=== PATIENT | female | born 1960 | race Caucasian/White ===

== ENCOUNTER 2016-12-12 09:39 | Emergency (ER) | payer BC ==
[2016-12-12 10:37] VITALS: BP 115/70
--- NOTE | 2016-12-12 11:56 | UC ---
Throat Pain/Nasal Cruzito HPI - HPI Summary HPI Summary: ONE WEEK OF SORE THROAT AND FEVER DEVELOPED YESTERDAY 100F. NO COUGH. - History of Current Complaint Chief Complaint: UCRespiratory Stated Complaint: SORE THROAT FEVER Time Seen by Provider: 12/12/16 11:15 Hx Obtained From: Patient Onset/Duration: Gradual Onset, Lasting Weeks, Still Present Severity: Mild Cough: None Associated Signs & Symptoms: Positive: Hoarseness, Fever - Epiglottits Risk Factors Epiglottis Risk Factors: Negative - Allergies/Home Medications Allergies/Adverse Reactions: Allergies Allergy/AdvReac Type Severity Reaction Status Date / Time Cefazolin [From Ancef] Allergy Hives Verified 12/12/16 10:30 Fluconazole [From Diflucan] Allergy Airway Verified 12/12/16 10:30 Obstruction Home Medications: Home Medications Allergy Medication PRN 12/12/16 [History] PMH/Surg Hx/FS Hx/Imm Hx Previously Healthy: Yes Cardiovascular History Of: Reports: Cardiac Disorders - MVP - Surgical History Surgical History: Yes Surgery Procedure, Year, and Place: Cholecystectomy Tubal Ligation, 2003, [facility] [place] - Family History Known Family History: Negative: Cardiac Disease, Respiratory Disease - Social History Occupation: Employed Full-time Lives: With Family Alcohol Use: Occasionally Substance Use Type: None Smoking Status (MU): Never Smoked Tobacco - Immunization History Most Recent Influenza Vaccination: June 2014 Review of Systems Constitutional: Fever Skin: Negative ENT: Sore Throat Respiratory: Negative Cardiovascular: Negative Gastrointestinal: Negative Genitourinary: Negative Motor: Negative Neurovascular: Negative Musculoskeletal: Negative Neurological: Negative Psychological: Negative All Other Systems Reviewed And Are Negative: Yes Physical Exam Triage Information Reviewed: Yes Appearance: Well-Appearing, No Pain Distress, Well-Nourished Vital Signs: Initial Vital Signs Temp 99.7 F 12/12/16 10:33 Pulse 89 12/12/16 10:33 Resp 18 12/12/16 10:33 BP 115/70 12/12/16 10:33 Pulse Ox 99 12/12/16 10:33 Vital Signs Reviewed: Yes Eye Exam: Normal Eyes: Positive: Conjunctiva Clear ENT: Positive: Pharynx normal, Pharyngeal erythema, TMs normal Dental Exam: Normal Neck exam: Normal Respiratory Exam: Normal Respiratory: Positive: Chest non-tender, Lungs clear, Normal breath sounds, No respiratory distress Cardiovascular Exam: Normal Cardiovascular: Positive: RRR, No Murmur Abdominal Exam: Normal Musculoskeletal Exam: Normal Neurological Exam: Normal Psychological Exam: Normal Psychological: Positive: Normal Response To Family Skin Exam: Normal Throat Pain/Nasal Course/Dx - Differential Dx/Diagnosis Differential Diagnosis/HQI/PQRI: Sinusitis, Tonsillitis, URI Provider Diagnoses: PHARYNGITIS. VIRAL SYNDROME Discharge - Discharge Plan Condition: Stable Disposition: HOME Patient Education Materials: Pharyngitis (ED), Viral Syndrome (ED) Referrals: Raine Rodriguez MD [Primary Care Provider] -
== END 2016-12-12 11:53 | disposition home or self-care (01) ==
LOC: UCCORT 09:39
DX: J02.9 Acute pharyngitis, unspecified (principal); B34.9 Viral infection, unspecified; I34.1 Nonrheumatic mitral (valve) prolapse; Z90.49 Acquired absence of other specified parts of digestive tract; Z88.1 Allergy status to other antibiotic agents
CPT/HCPCS: 87651; 99211; G0463

== ENCOUNTER 2017-06-10 09:18 | Emergency (ER) | payer BC ==
[2017-06-10 09:47] VITALS: BP 118/71
--- NOTE | 2017-06-10 10:28 | UC ---
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 Put hand in migdalia detergent immediately afterward to "Stop reaction" and took benadryl. no symptoms until this morning when woke to finger being swolllen, ithcy, and warm. took benadryl, symptoms improved. Requesting prednisone in case symptoms arise like they have in past as she is travelling. - History of Current Complaint Chief Complaint: UCSkin Stated Complaint: BEE STING 06/07/17 Time Seen by Provider: 06/10/17 10:15 Hx Obtained From: Patient Hx Last Menstrual Period: n/a Onset/Duration: Gradual Onset, Lasting Days Severity Initially: Mild Severity Currently: None - Allergies/Home Medications Allergies/Adverse Reactions: Allergies Allergy/AdvReac Type Severity Reaction Status Date / Time Cefazolin [From Ancef] Allergy Hives Verified 06/10/17 09:47 Fluconazole [From Diflucan] Allergy Airway Verified 06/10/17 09:47 Obstruction PMH/Surg Hx/FS Hx/Imm Hx Previously Healthy: Yes - Surgical History Surgical History: Yes Surgery Procedure, Year, and Place: Cholecystectomy Tubal Ligation, 2003, [facility] [place] - Family History Known Family History: Negative: Cardiac Disease, Respiratory Disease - Social History Alcohol Use: Occasionally Substance Use Type: None Smoking Status (MU): Never Smoked Tobacco - Immunization History Most Recent Influenza Vaccination: no 2016 Review of Systems Skin: Rash Neurological: Other - itching Is Patient Immunocompromised?: No All Other Systems Reviewed And Are Negative: Yes Physical Exam Triage Information Reviewed: Yes Appearance: Well-Appearing, No Pain Distress, Well-Nourished Vital Signs: Initial Vital Signs Temp 98.4 F 06/10/17 09:42 Pulse 80 06/10/17 09:42 Resp 15 06/10/17 09:42 BP 118/71 06/10/17 09:42 Pulse Ox 98 06/10/17 09:42 Eyes: Positive: Conjunctiva Clear Musculoskeletal: Positive: Strength Intact, ROM Intact, No Edema, Other: - right thumb with minimal erythema, no edema, non-tender to touch, no warmth. full ROM with full senation, strength 5/5, no other areas of redness, warmth on heand, full ROM wrist, fingers. rad, ulnar pulses 2+ Allergic Reaction Course/Dx - Course Course Of Treatment: currently stable and asympomatic. Typically i would not gie out steroids however, patient seems to be a very good historian and since will be away from home i cecy prescribe medrol dose pack in case symptoms occur. she should take bendryl for mild s/s as she is doing now, and will also recommend an H2 maureen to help with reaction - Differential Dx/Diagnosis Differential Diagnosis/HQI/PQRI: Airway Obstruction Provider Diagnoses: allergic reaction to insect sting Discharge - Discharge Plan Condition: Good Disposition: HOME Prescriptions: Methylprednisolone [Medrol Dosepak 4 MG*] 1 kym PO .SEE KYM INSTRUCTION #1 kym Patient Education Materials: General Allergic Reaction (ED) Referrals: Liset Pablo MD [Primary Care Provider] - Additional Instructions: - Zantac/ Ranitidine 150 mg twice a day - Allergy medication during the day, Benadryl at night for next 3 days - Medrol dose pack as directed if symptoms worsen. - FOllow up with primary physician
== END 2017-06-10 10:34 | disposition home or self-care (01) ==
LOC: UCCORT 09:18
DX: T63.441A Toxic effect of venom of bees, accidental (unintentional), initial encounter (principal); L29.9 Pruritus, unspecified; X58.XXXA Exposure to other specified factors, initial encounter; Y92.89 Other specified places as the place of occurrence of the external cause; Z88.8 Allergy status to other drugs, medicaments and biological substances
CPT/HCPCS: 99212; G0463

== ENCOUNTER 2019-01-22 07:26 | Emergency (ER) | payer BC ==
[2019-01-22 07:41] VITALS: BP 116/78
--- NOTE | 2019-01-22 08:34 | UC ---
Throat Pain/Nasal Cruzito HPI - HPI Summary HPI Summary: 59 yo female with sore throat x 3 days, nasal congestion, a lot of PND, low grade temp no cp or sob hx VAIBHAV - History of Current Complaint Chief Complaint: UCGeneralIllness Stated Complaint: SORE THROAT, FEVER Time Seen by Provider: 01/22/19 08:13 Hx Obtained From: Patient Hx Last Menstrual Period: n/a Onset/Duration: Gradual Onset, Lasting Days Severity: Moderate Pain Intensity: 5 Pain Scale Used: 0-10 Numeric Cough: None Associated Signs & Symptoms: Positive: Nasal Discharge Related History: Seasonal Allergies - Epiglottits Risk Factors Epiglottis Risk Factors: Negative - Allergies/Home Medications Allergies/Adverse Reactions: Allergies Allergy/AdvReac Type Severity Reaction Status Date / Time cefazolin Allergy Hives Verified 01/22/19 07:43 fluconazole Allergy Airway Verified 01/22/19 07:43 Obstruction Penicillins Allergy Palpitation Verified 01/22/19 07:43 s Home Medications: Home Medications Multivitamin [Multiple Vitamins] 1 tab PO DAILY 01/22/19 [History Confirmed ] PMH/Surg Hx/FS Hx/Imm Hx Previously Healthy: Yes - Surgical History Surgical History: Yes Surgery Procedure, Year, and Place: Cholecystectomy Tubal Ligation, 2003, [facility] - Family History Known Family History: Negative: Cardiac Disease, Respiratory Disease - Social History Alcohol Use: Occasionally Substance Use Type: None Smoking Status (MU): Never Smoked Tobacco - Immunization History Most Recent Influenza Vaccination: no 2016 Review of Systems All Other Systems Reviewed And Are Negative: Yes Constitutional: Positive: Fever - yong Skin: Positive: Negative Eyes: Positive: Negative ENT: Positive: Sore Throat, Nasal Discharge, Sinus Congestion Respiratory: Positive: Negative Cardiovascular: Positive: Negative Gastrointestinal: Positive: Nausea - day one of illness Genitourinary: Positive: Negative Motor: Positive: Negative Neurovascular: Positive: Negative Musculoskeletal: Positive: Negative Neurological: Positive: Negative Psychological: Positive: Negative Physical Exam Triage Information Reviewed: Yes Appearance: Well-Appearing, No Pain Distress, Well-Nourished Vital Signs: Initial Vital Signs Temp 98 F 01/22/19 07:36 Pulse 98 01/22/19 07:36 Resp 16 01/22/19 07:36 BP 116/78 01/22/19 07:36 Pulse Ox 99 01/22/19 07:36 Eyes: Positive: Conjunctiva Clear ENT: Positive: Pharyngeal erythema, Nasal congestion, Nasal drainage. Negative : Tonsillar swelling, Tonsillar exudate, Hoarse voice, Sinus tenderness, Uvula midline Neck: Positive: Supple, Nontender, No Lymphadenopathy Respiratory: Positive: Lungs clear, Normal breath sounds, No respiratory distress, No accessory muscle use Cardiovascular: Positive: RRR, No Murmur Musculoskeletal: Positive: No Edema Neurological: Positive: Alert Psychological Exam: Normal Skin Exam: Normal Throat Pain/Nasal Course/Dx - Course Course Of Treatment: RS (-) - Differential Dx/Diagnosis Provider Diagnosis: Viral URI Discharge - Sign-Out/Discharge Documenting (check all that apply): Patient Departure All imaging exams completed and their final reports reviewed: No Studies - Discharge Plan Condition: Stable Disposition: HOME Patient Education Materials: Upper Respiratory Infection (ED) Referrals: Liset Pablo MD [Primary Care Provider] - 4 Days (if not improved) Additional Instructions: rest fluids tylenol or advil - Billing Disposition and Condition Condition: STABLE Disposition: Home
== END 2019-01-22 08:45 | disposition home or self-care (01) ==
LOC: UCCORT 07:26
DX: J06.9 Acute upper respiratory infection, unspecified (principal); Z88.1 Allergy status to other antibiotic agents; Z88.3 Allergy status to other anti-infective agents; Z88.0 Allergy status to penicillin
CPT/HCPCS: 87651; 99211; G0463

== ENCOUNTER 2019-12-27 13:55 | Emergency (ER) | payer BC ==
[2019-12-27] MEDS ORDERED: NS 0.9% 1000 ml BAG 1,000 ML IV ONE (14:25)
[2019-12-27 14:43] LABS: ABS Basophils 0.1 10^3/ul (0-0.2); ABS Eosinophils 0.1 10^3/ul (0-0.6); ABS Lymphocytes 1.1 10^3/ul (1.0-4.8); ABS Monocytes 0.4 10^3/ul (0-0.8); Eosinophil % 1.5 %; Hematocrit 46 % (35-47); Hemoglobin 15.7 g/dL (12.0-16.0); Lymphocyte % 23.7 %; Mean Corpuscular HGB Conc 34 g/dL (31-36); Mean Corpuscular Hemoglobin 32 pg (27-31); Mean Corpuscular Volume 94 fL (80-97); Mean Platelet Volume 7.8 fL (7.4-10.4); Nucleated Red Blood Cells % 0.1; Platelet Count 266 10^3/uL (150-450); Red Cell Distribution Width 13 % (10-15); White Blood Count 4.6 10^3/uL (3.5-10.8)
[2019-12-27 14:53] LABS: Urine Appearance Clear; Urine Bilirubin Negative (Negative); Urine Blood Negative (Negative); Urine Color Colorless; Urine Glucose Negative (Negative); Urine Ketones Negative (Negative); Urine Nitrite Negative (Negative); Urine Protein Negative (Negative); Urine Specific Gravity 1.002 (1.010-1.030); Urine Urobilinogen Negative (Negative)
[2019-12-27 15:02] LABS: ALT 22 U/L (7-52); Albumin 4.7 g/dL (3.2-5.2); Albumin/Globulin Ratio 1.8 (1-3); Alkaline Phosphatase 64 U/L (34-104); BUN/Creatinine Ratio 13.3 (8-20); Blood Urea Nitrogen 11 mg/dL (6-24); CO2 Carbon Dioxide 26 mmol/L (22-32); Calcium 9.8 mg/dL (8.6-10.3); Chloride 105 mmol/L (101-111); EGFR African American 85.1 (>60); EGFR Non-African American 70.4 (>60); Globulin 2.6 g/dL (2-4); Glucose 99 mg/dL (70-100); Sodium 140 mmol/L (135-145); Total Protein 7.3 g/dL (6.4-8.9)
[2019-12-27 15:11] LABS: Anion Gap 9 mmol/L (2-11)
[2019-12-27 16:13] VITALS: BP 130/82
== END 2019-12-27 16:15 | disposition home or self-care (01) ==
LOC: ED 13:55